=== PATIENT | female | born 1950 | race Caucasian/White ===

== ENCOUNTER 2016-10-31 12:21 | Emergency (ER) | payer OTHER ==
[2016-10-31 12:26] VITALS: BP 118/80; PULSE 110; RESP 16; TEMP 97.1; O2SAT 98
--- NOTE | 2016-10-31 13:08 | ED PDOC ---
HPI: Back Time Seen by Provider: 10/31/16 12:25 Chief Complaint (Nursing): Back Pain Chief Complaint (Provider): Back Pain and Right Hip Pain History Per: Patient History/Exam Limitations: no limitations Onset/Duration Of Symptoms: Days Current Symptoms Are (Timing): Still Present Quality Of Discomfort: "Pain" Previous Symptoms: Back Pain Exacerbating Factor(s): Movement Additional Complaint(s): Silke Perdomo, a 66 year old female, with a past medical history of back problems , hypertension and asthma presents to the ED complaining of back pain and right hip pain. The patient states that she has had similar pains in the past but does not recall what her diagnosis was because she was diagnosed a few years ago. Patient states she has taken 200mg of motrin for pain with no relief. Denies numbness, tingling, fever, bowel/bladder incontinence. PMD: Isaura Deutsch - Risk Factors AAA Risk Factors: Pos: Older Than 49 Years Of Age Past Medical History Reviewed: Historical Data, Nursing Documentation, Vital Signs Vital Signs: Last Vital Signs Temp 97.1 F L 10/31/16 12:23 Pulse 110 H 10/31/16 12:23 Resp 16 10/31/16 12:23 BP 118/80 10/31/16 12:23 Pulse Ox 98 10/31/16 12:23 - Medical History PMH: Arthritis, Asthma, Back Problems, Bipolar Disorder, Diabetes, HTN - Surgical History Other surgeries: Hysterectomy - Family History Family History: States: Unknown Family Hx - Social History Current smoker - smoking cessation education provided: No Alcohol: None Drugs: Denies - Home Medications Home Medications: Ambulatory Orders Medication Instructions Recorded Fluconazole [Diflucan] 150 mg PO ONCE #2 tab 12/19/14 Sulfamethoxazole/Trimethopri 1 tab PO BID #20 tab 12/19/14 [Bactrim Ds 800 mg-160 mg] Cyclobenzaprine [Cyclobenzaprine 10 mg PO Q8H PRN #12 tab 10/31/16 HCl] Naproxen 500 mg PO Q12H PRN #20 ect 10/31/16 - Allergies Allergies/Adverse Reactions: Allergies Allergy/AdvReac Type Severity Reaction Status Date / Time No Known Allergies Allergy Verified 12/19/14 12:28 Review of Systems ROS Statement: Except As Marked, All Systems Reviewed And Found Negative Musculoskeletal: Positive for: Back Pain, Other (Right Hip Pain ) Physical Exam - Reviewed Nursing Documentation Reviewed: Yes Vital Signs Reviewed: Yes - Physical Exam Appears: Positive for: Non-toxic, No Acute Distress Head Exam: Positive for: ATRAUMATIC, NORMAL INSPECTION, NORMOCEPHALIC Skin: Positive for: Normal Color, Warm, Dry Eye Exam: Positive for: Normal appearance, EOMI, PERRL ENT: Positive for: Normal ENT Inspection Neck: Positive for: Normal Respiratory: Negative for: Accessory Muscle Use, Respiratory Distress Back: Positive for: Normal Inspection. Negative for: L CVA Tenderness, R CVA Tenderness, Vertebral Tenderness Extremity: Positive for: Normal ROM (Full ROM to lower extremties.), Tenderness (Tenderness to right buttock). Negative for: Calf Tenderness, Deformity, Swelling Neurologic/Psych: Positive for: Alert, Oriented - ECG O2 Sat by Pulse Oximetry: 98 (RA) Pulse Ox Interpretation: Normal Medical Decision Making Medical Decision Makin Initial Impression: 66 year old female presenting with right hip pain and back pain Initial Plan: * Flexeril 10mg PO * Toradol 30mg IM * Reevaluation Scribe Attestation Documented by Wen Simmons acting as a scribe for Briana Herrera PA-C. Scribe Attestation All medical record entries made by the Scribe were at my direction and personally dictated by me. I have reviewed the chart and agree that the record accurately reflects my personal performance of the history, physical exam, medical decision making, and the department course for this patient. I have also personally directed, reviewed, and agree with the discharge instructions and disposition. Disposition - Clinical Impression Clinical Impression: Sciatica - Patient ED Disposition Is Patient to be Admitted: No Counseled Patient/Family Regarding: Studies Performed - Disposition Disposition: Routine/Home Disposition Time: 01:16 Condition: STABLE Prescriptions: Cyclobenzaprine [Cyclobenzaprine HCl] 10 mg PO Q8H PRN #12 tab PRN Reason: Muscle Spasm Naproxen 500 mg PO Q12H PRN #20 ect PRN Reason: Pain, Severe (8-10) Instructions: Sciatica (ED) Forms: [employer] (Urdu)
== END 2016-10-31 13:33 | disposition home or self-care (01) ==
LOC: H.ER 12:21
DX: M54.31 Sciatica, right side (principal); E11.9 Type 2 diabetes mellitus without complications; F31.9 Bipolar disorder, unspecified; I10 Essential (primary) hypertension
CPT/HCPCS: 96372; 99281; J1885

== ENCOUNTER 2017-10-18 13:20 | Emergency (ER) | payer OTHER ==
--- NOTE | 2017-10-18 13:58 | ED PDOC ---
Upper Extremity Pain/Injury Time Seen by Provider: 10/18/17 13:26 Chief Complaint (Nursing): Upper Extremity Problem/Injury History Per: Patient History/Exam Limitations: no limitations Additional Complaint(s): 67-year-old female complaining of atraumatic left elbow pain that is worse with palpation and with movement for the past 3 days. Reports no fall, injury, fever , chills, swelling, numbness, decrease in range of motion, neck pain, back pain , chest pain, other joint pain. Patient has no additional complaints. Patient is left hand dominant. Past Medical History - Medical History PMH: Arthritis, Asthma, Back Problems, Bipolar Disorder, Diabetes, HTN - Family History Family History: States: Unknown Family Hx - Home Medications Home Medications: Ambulatory Orders Medication Instructions Recorded Fluconazole [Diflucan] 150 mg PO ONCE #2 tab 12/19/14 Sulfamethoxazole/Trimethopri 1 tab PO BID #20 tab 12/19/14 [Bactrim Ds 800 mg-160 mg] Cyclobenzaprine [Cyclobenzaprine 10 mg PO Q8H PRN #12 tab 10/31/16 HCl] Naproxen 500 mg PO Q12H PRN #20 ect 10/31/16 Meloxicam [Mobic] 15 mg PO DAILY #20 tab 10/18/17 - Allergies Allergies/Adverse Reactions: Allergies Allergy/AdvReac Type Severity Reaction Status Date / Time Penicillins Allergy RASH Verified 10/18/17 13:41 Sulfa (Sulfonamide Allergy RASH Verified 10/18/17 13:41 Antibiotics) Review of Systems Constitutional: Negative for: Fever, Chills Cardiovascular: Negative for: Chest Pain, Palpitations Respiratory: Negative for: Cough, Shortness of Breath Musculoskeletal: Positive for: Arm Pain. Negative for: Neck Pain, Back Pain Skin: Negative for: Rash, Lesions Neurological: Negative for: Weakness, Numbness Physical Exam - Reviewed Vital Signs Reviewed: Yes - Physical Exam Appears: Positive for: Well, Non-toxic, No Acute Distress Skin: Positive for: Normal Color, Warm, Dry. Negative for: Rash Neck: Positive for: Normal, Painless ROM, Supple (no tenderness) Cardiovascular/Chest: Positive for: Regular Rate, Rhythm. Negative for: Murmur Respiratory: Positive for: Normal Breath Sounds. Negative for: Rales, Rhonchi, Wheezing Pulses-Radial (L): 2+ Back: Negative for: Normal Inspection, Vertebral Tenderness Extremity: Positive for: Normal ROM, Tenderness (+point tenderness to the lateral aspect of the L elbow, +pain elicited with ROM of the L elbow), Capillary Refill (<2sec). Negative for: Deformity, Swelling Neurologic/Psych: Positive for: Alert, wellhead pumper II-XII (Intact), Oriented (3). Negative for: Motor/Sensory Deficits Medical Decision Making Medical Decision Making: Plan : - XR L elbow - Toradol IM XR left elbow: no fracture, no dislocation, as read by PA X-ray results discussed the patient. Mark wrap and shoulder sling applied. Diagnosis of lateral epicondylitis discussed the patient. Advised to rest, ice, take NSAIDs for pain. Advised to follow up with oral surgery referral provided in 1-2 days without fail. Return to the emergency room at any time for any new or worsening symptoms. Patient states she fully agrees with and understands discharge instructions. States that she agrees with the plan and disposition. Verbalized and repeated discharge instructions and plan. I have given the patient opportunity to ask any additional questions. Disposition - Clinical Impression Clinical Impression: Left elbow pain, Lateral epicondylitis (tennis elbow) - Patient ED Disposition Is Patient to be Admitted: No Counseled Patient/Family Regarding: Studies Performed, Diagnosis, Need For Followup, Rx Given - Disposition Referrals: Aleks Cohen III, MD [Staff Provider] - Disposition: Routine/Home Disposition Time: 15:15 Condition: STABLE Additional Instructions: Thank you for letting us take care of you today. You were treated for left elbow pain, consider lateral epicondylitis - tennis elbow. The emergency medical care you received today was directed at your acute symptoms. Rest, ice your elbow. If you were prescribed any medication, please fill it and take as directed. It may take several days for your symptoms to resolve. Return to the Emergency Department if your symptoms worsen, do not improve, or if you have any other problems. Please contact your doctor in 2 days for re-evaluation and follow up / or call one of the physicians/clinics you have been referred to that are listed on the Patient Visit Information form that is included in your discharge packet. Bring any paperwork you were given at discharge with you along with any medications you are taking to your follow up visit. Our treatment cannot replace ongoing medical care by a primary care provider (PCP) outside of the emergency department. Thank you for allowing the [facility] team to be part of your care today. If you had an X-Ray : A Radiologist will review the ED reading if any change in treatment is needed we will contact you. Prescriptions: Meloxicam [Mobic] 15 mg PO DAILY #20 tab Instructions: Lateral Epicondylitis Forms: [employer] (Armenian) - PA / CHIEF LOCK TENDER OPERATOR / Resident Statement MD/DO has reviewed & agrees with the documentation as recorded.
--- NOTE | 2017-10-18 14:14 | RAD ---
Date of service: 10/18/2017 PROCEDURE: Radiographs of the left elbow. HISTORY: pain COMPARISON: No prior. FINDINGS: BONES: Normal. No fracture. JOINTS: Normal. No osteoarthritis. SOFT TISSUES: Normal. JOINT EFFUSION: None. OTHER FINDINGS: None IMPRESSION: No evidence of acute displaced fracture nor dislocation.
[2017-10-18 14:58] VITALS: TEMP 98.7
[2017-10-18 15:04] VITALS: BP 140/71; PULSE 76; RESP 18; O2SAT 100
== END 2017-10-18 15:55 | disposition home or self-care (01) ==
LOC: H.ER 13:20
DX: M77.12 Lateral epicondylitis, left elbow (principal); E11.9 Type 2 diabetes mellitus without complications; I10 Essential (primary) hypertension; Z88.0 Allergy status to penicillin
CPT/HCPCS: 73080; 96372; 99284; J1885